=== PATIENT | male | born 1975 | race Two or more races ===

== ENCOUNTER 2025-01-07 15:23 | Outpatient (CLI) | payer OTHER ==
--- NOTE | 2025-01-07 19:05 | RADIOLOGY REPORT ---
EXAM: MR MRI UPPER EXTREMITY RIGHT INDICATION: PAIN IN RIGHT ELBOW,ENTHESOPATHY,RADIAL TUNNEL SYNDROME TECHNIQUE: Multiplanar, multisequence imaging of the right forearm without contrast COMPARISON: None FINDINGS: BONES: No MR evidence of an acute fracture, osseous contusion, or aggressive focal osseous lesion. Small subchondral cysts of the distal radius and small intraosseous versus subchondral cysts of the lunate MUSCLES: Normal signal intensity and morphology. TENDONS: Intact. LIGAMENTS: Intact. JOINT SPACES: No joint effusion. NEUROVASCULAR: Normal. OTHER: None. IMPRESSION: 1. No definitive MR evidence of internal derangement
== END 2025-01-07 23:59 | disposition home or self-care (01) ==
LOC: MRI02 15:23
PROVIDERS: ATTEND Family Medicine Sports Medicine
DX: G56.31 Lesion of radial nerve, right upper limb (principal); M77.9 Enthesopathy, unspecified; M25.521 Pain in right elbow
CPT/HCPCS: 73218